=== PATIENT | male | born 1945 | race Caucasian/White ===

== ENCOUNTER 2018-12-20 18:48 | Emergency (ER) | payer OTHER, MEDICAID ==
[~2018-12-20] VITALS: Ht 170.2 cm; Wt 99.8 kg
--- NOTE | 2018-12-20 18:48 | NUR ---
PT A/OX2, BIB [facility], C/C SYNCOPE AND AMS. PER DAIRY NUTRITIONIST REPORT, PT WAS FOUND UNCONSCIOUS INSIDE A SAUNA AT THE LOCAL GYM BY A BYSTANDER, BYSTANDER REPORTS PT WAS POSSIBLY IN THE SAUNA FOR APPROXIMATELY 1 HOUR. BGS 290 IN THE FIELD. VS WNL. 20G IV ACCESS ESTABLISHED BY PARAMEDICS IN L HAND. SECONDARY COMPLAINT: DIZZINESS. PT DENIES PAIN, C/P, SOB, N/V/D, HEADACHE.
--- NOTE | 2018-12-20 18:49 | NUR ---
Code Stroke activated per Dr.Lai fisher.
--- NOTE | 2018-12-20 18:56 | NUR ---
Pt to CT with ACLS guidelines in place with [facility] READ and process safety engineering technologist.
--- NOTE | 2018-12-20 18:59 | NUR ---
Called [facility], spoke with Dr.Gajjar Tucker to call back.
--- NOTE | 2018-12-20 19:00 | NUR ---
Received report from Wang READ, assumed care of pt.,
--- NOTE | 2018-12-20 19:05 | NUR ---
SPOKE W/ PT'S SPOUSE, LAST WELL KNOWN TIME APPROXIMATELY 1700.
[2018-12-20 19:20] LABS: EOSINOPHILS # (AUTO) 0.1 K/uL (0.0-0.7); HEMATOCRIT 44.9 % (36.7-47.1); HEMOGLOBIN 15.3 g/dL (12.5-16.3); LYMPHOCYTES # (AUTO) 1.1 K/uL (20.0-40.0); LYMPHOCYTES % (AUTO) 23.9 % (20.5-51.5); MEAN CORPUSCULAR HEMOGLOBIN 30.6 uug (23.8-33.4); MEAN CORPUSCULAR HGB CONC 34 g/dL (32.5-36.3); MONOCYTES # (AUTO) 0.4 K/uL (2.0-10.0); MONOCYTES % (AUTO) 8.2 % (0.0-11.0); NEUTROPHILS % (AUTO) 63.9 % (38.5-71.5); PLATELET COUNT (AUTO) 153 K/uL (152-348); RED BLOOD CELL COUNT(AUTO) 4.99 MIL/uL (4.06-5.63); WHITE BLOOD COUNT (AUTO) 4.8 K/uL (3.6-10.2)
[2018-12-20] MEDS ORDERED: IV NORMAL SALINE 250 ML IV ONE ×2 (19:20→19:42)
[2018-12-20] MEDS ORDERED: NORMAL SALINE FLUSH 10 ML DISP.SYRIN ONE ×2 (19:20→19:42)
[2018-12-20] MEDS ORDERED: IOHEXOL 350 100 ML INFUS..BTL ONE (19:20)
[2018-12-20] MEDS ORDERED: SWABABLE VALVE TRANSFER SET EA MC ONE ×2 (19:20→19:42)
--- NOTE | 2018-12-20 19:20 | NUR ---
Placed pt. on 2L O2 NC,
--- NOTE | 2018-12-20 19:23 | NUR ---
SHIFT REPORT GIVEN TO HEENA Martinez RN. PT RESTING IN BED AT THIS TIME. VS L.
[2018-12-20 19:31] LABS: CARBON DIOXIDE 26 mmol/L (21-32); CHLORIDE 101 mmol/L (98-107); CREATININE 1.1 mg/dL (0.6-1.3); GLUCOSE 291 mg/dL (74-106); UREA NITROGEN, BLOOD 18 mg/dL (7-18)
--- NOTE | 2018-12-20 19:33 | NUR ---
Placed pt. on ACLS monitor and escorted pt. w/ Rad. tech. off unit via stretcher for CT w/ contrast,
[2018-12-20 19:37] LABS: CHOLESTEROL 249 mg/dL (<200); HDL CHOLESTEROL 35 mg/dL (40-60); TRIGLYCERIDES 246 MG/DL (30-150)
[2018-12-20 19:40] LABS: ETHANOL < 3 MG/DL (0-0)
[2018-12-20] MEDS ORDERED: IOHEXOL 300MG/ML 100 ML INFUS..BTL ONE (19:42)
[2018-12-20 20:54] LABS: *BILIRUBIN,URIN NEGATIVE (NEGATIVE); *BLOOD, URINE Trace-intact (NEGATIVE); *CLARITY,URINE CLEAR (CLEAR); *COLOR,URINE YELLOW (YELLOW); *KETONES,URINE NEGATIVE (NEGATIVE); LEUKOCYTE ESTERASE ,URINE NEGATIVE (NEGATIVE); NITRITE, URINE NEGATIVE (NEGATIVE); UGLUCOSE 2+ (NEGATIVE)
[2018-12-20 20:59] LABS: MUCUS,URINE FEW /LPF (0-FEW); RBC,URINE 0-3 /HPF (0-3); WBC,URINE 0-3 /HPF (0-3)
[2018-12-20] MEDS ORDERED: IV NORMAL SALINE 1000 ML BAG IV ONE (21:00)
[2018-12-20 21:05] LABS: *AMPHETAMINE, URINE NEGATIVE (NEGATIVE); *BARBITURATE, URINE NEGATIVE (NEGATIVE); *CANNABINOID, URINE NEGATIVE (NEGATIVE); *COCCAINE, URINE NEGATIVE (NEGATIVE); *OPIATE, URINE NEGATIVE (NEGATIVE); *PHENCYCLIDINE SCREEN,URINE NEGATIVE (NEGATIVE)
--- NOTE | 2018-12-20 21:47 | NUR ---
Dr. Foy on phone w/ Dr. Angulo neurologist of [facility]
[2018-12-20 21:48] LABS: BILIRUBIN,DIRECT 0.2 mg/dL (0.0-0.2); BILIRUBIN,TOTAL 0.3 mg/dL (0.2-1.0)
--- NOTE | 2018-12-20 21:51 | NUR ---
Tracy called from [facility] to request current VS - VS given (WDL),
--- NOTE | 2018-12-20 21:57 | NUR ---
Pt. requested water - given, NAD, at bedside,
--- NOTE | 2018-12-20 23:08 | NUR ---
Spoke w/ Dr. Angulo for pt. status update,
--- NOTE | 2018-12-21 00:02 | NUR ---
Gave report to Gema at [facility] [phone], pt. to transfer over care of Dr. Napoles
--- NOTE | 2018-12-21 00:33 | NUR ---
Pt. taken out of ED by [facility] ACLS transport #[id number] to admit to [facility] - Summary report given, pt. provided w/ images, all belongings w/ pt., transfer consent signed and copy given to EMS, left w/ , NAD,
[2018-12-21 00:36] VITALS: BP 159/69
== END 2018-12-21 00:38 | disposition short-term general hospital (02) ==
LOC: ER 18:51
DX: R55 Syncope and collapse (principal); R41.0 Disorientation, unspecified
CPT/HCPCS: 36415; 70450; 70496; 70498; 71045; 71260; 74177; 80048; 80061; 80307; 81001; 82247; 82248; 83605 ×3; 84484; 85025; 85730; 87040 ×2; 87086; 93005; 96360; 96361; 99285; G0480; Q9967 ×2; 70030-TC; A4663; C1758; J3490; J7030; J7050